=== PATIENT | female | born 1990 | race Caucasian/White ===

== ENCOUNTER 2017-02-25 22:22 | Emergency (ER) | payer SELFPAY ==
[2017-02-25 22:34] VITALS: BP 148/98
== END 2017-02-25 23:50 | disposition left against medical advice (07) ==
LOC: ER 22:22
DX: Z53.21 Procedure and treatment not carried out due to patient leaving prior to being seen by health care provider (principal)

== ENCOUNTER 2017-06-08 05:17 | Emergency (ER) | payer MEDICAID ==
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
[2017-06-08] MEDS ORDERED: LIDOCAINE 5% (700 MG) TRANSDERMAL ADH..PATCH TP ONE (07:59)
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
[2017-06-08] MEDS ORDERED: HYDROCODONE/ACETAMINOPHEN 5-325 MG TABLET PO ONE (11:12)
[2017-06-08 11:24] VITALS: BP 127/68
== END 2017-06-08 11:39 | disposition home or self-care (01) ==
LOC: ER 05:17
DX: S40.029A Contusion of unspecified upper arm, initial encounter (principal); R58 Hemorrhage, not elsewhere classified; M54.2 Cervicalgia; M25.519 Pain in unspecified shoulder; M25.529 Pain in unspecified elbow; Y04.2XXA Assault by strike against or bumped into by another person, initial encounter; F17.200 Nicotine dependence, unspecified, uncomplicated; Z88.0 Allergy status to penicillin
CPT/HCPCS: 99284; 72050; 73080; 73130; 73030; J3490

== ENCOUNTER 2018-04-19 14:17 | Emergency (ER) | payer MEDICAID ==
[2018-04-19 14:49] LABS: HEMATOCRIT 44.7 % (36.0-47.0); HEMOGLOBIN 14.4 g/dL (12.0-15.5); MEAN CORPUSCULAR HGB CONC 32.2 g/dL (32.0-36.0); MEAN CORPUSCULAR VOLUME 90 fl (80-97); PLATELET COUNT 315 10^3/uL (150-450); RED BLOOD COUNT 4.97 10^6/uL (3.72-5.28); RED CELL DISTRIBUTION WIDTH 16.2 % (11.5-14.0); WHITE BLOOD COUNT 25.2 10^3/uL (4.0-10.5)
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
[2018-04-19 15:08] LABS: ALANINE AMINOTRANSFERASE 15 U/L (9-52); ALBUMIN 4.9 g/dL (3.5-5.0); ALKALINE PHOSPHATASE 95 U/L (38-126); ASPARTATE AMINO TRANSFERASE 28 U/L (14-36); BILIRUBIN,DIRECT 0.3 mg/dL (0.0-0.4); BILIRUBIN,TOTAL 0.3 mg/dL (0.2-1.3); BLOOD UREA NITROGEN 9 mg/dL (7-20); CALCIUM 9.3 mg/dL (8.4-10.2); CARBON DIOXIDE 22 mmol/L (22-30); CHLORIDE 108 mmol/L (98-107); GLUCOSE 149 mg/dL (75-110); POTASSIUM 5.5 mmol/L (3.6-5.0); TOTAL PROTEIN 7.7 g/dL (6.3-8.2)
[2018-04-19 15:10] LABS: ABSOLUTE LYMPHOCYTES# (MANUAL) 1.3 10^3/uL (0.5-4.7); ABSOLUTE MONOCYTES # (MANUAL) 0.8 10^3/uL (0.1-1.4); ABSOLUTE NEUTROPHILS# (MANUAL) 23.2 10^3/uL (1.7-8.2); ACETAMINOPHEN < 10 ug/mL (10-30); ALCOHOL < 10 mg/dL (NONE DETECTED); BASOPHILS % (MANUAL) 0 % (0-2); EOSINOPHILS % (MANUAL) 0 % (0-6); LYMPHOCYTES % (MANUAL) 5 % (13-45); MONOCYTES % (MANUAL) 3 % (3-13); SALICYLATE < 1.0 mg/dL (2.0-20.0); SEGMENTED NEUTROPHILS % (MAN) 92 % (42-78); TOTAL CELLS COUNTED 100
[2018-04-19 15:11] LABS: ANISOCYTOSIS 1+; PLATELET CLUMPS PRESENT; PLATELET COMMENT ADEQUATE; TOXIC GRANULATION 1+
[2018-04-19 15:13] LABS: ANION GAP 19 (5-19); SODIUM 149.3 mmol/L (137-145)
[2018-04-19 15:28] LABS: CREATINE KINASE MB 0.9 ng/mL (<4.55)
[2018-04-19 15:36] LABS: TROPONIN I 0.061 ng/mL
[2018-04-19] MEDS ORDERED: NORMAL SALINE 1000 ML 1,000 ML IV ONE (15:43)
--- NOTE | 2018-04-19 15:45 | EKG REPORT ---
SEVERITY:- OTHERWISE NORMAL ECG - SINUS TACHYCARDIA : Confirmed by: Royce Dowling MD 19-Apr-2018 15:45:15
--- NOTE | 2018-04-19 15:47 | RADIOLOGY REPORT (SQ) ---
EXAM DESCRIPTION: CHEST SINGLE VIEW COMPLETED DATE/TIME: 04/19/2018 3:29 pm REASON FOR STUDY: overdose COMPARISON: None. EXAM PARAMETERS: NUMBER OF VIEWS: One view. TECHNIQUE: Single frontal radiographic view of the chest acquired. RADIATION DOSE: NA LIMITATIONS: None. FINDINGS: LUNGS AND PLEURA: No opacities, masses or pneumothorax. No pleural effusion. MEDIASTINUM AND HILAR STRUCTURES: No masses. Contour normal. HEART AND VASCULAR STRUCTURES: Heart normal in size. Normal vasculature. BONES: No acute findings. HARDWARE: None in the chest. OTHER: No other significant finding. IMPRESSION: NO ACUTE RADIOGRAPHIC FINDING IN THE CHEST. TECHNICAL DOCUMENTATION: JOB ID: [id number] [employer]- All Rights Reserved Reading location - IP/workstation name: [email or web address]
[2018-04-19 16:04] LABS: FREE T3 4.72 pg/mL (2.77-5.27); FREE T4 (FREE THYROXINE) 0.99 ng/dL (0.78-2.19)
--- NOTE | 2018-04-19 16:15 | RADIOLOGY REPORT (SQ) ---
EXAM DESCRIPTION: CT HEAD WITHOUT COMPLETED DATE/TIME: 04/19/2018 4:06 pm REASON FOR STUDY: unresponsive COMPARISON: None. TECHNIQUE: Axial images acquired through the brain without intravenous contrast. Images reviewed wi th bone, brain and subdural windows. Images stored on PACS. All CT scanners at this facility use dose modulation, iterative reconstruction, and/or weight based d osing when appropriate to reduce radiation dose to as low as reasonably achievable (ALARA). [facility]: Dose Right [facility]: CareDose [facility]: Dose Right [facility]: Teradose 4D [facility]: Smart GenePeeks RADIATION DOSE: CT Rad equipment meets quality standard of care and radiation dose reduction techniq ues were employed. CTDIvol: 53.2 mGy. DLP: 1017 mGy-cm. mGy. LIMITATIONS: None. FINDINGS: VENTRICLES: Normal size and contour. CEREBRUM: No masses. No hemorrhage. No midline shift. No evidence for acute infarction. Normal gra y/white matter differentiation. No areas of low density in the white matter. CEREBELLUM: No masses. No hemorrhage. No alteration of density. No evidence for acute infarction. EXTRAAXIAL SPACES: No fluid collections. No masses. ORBITS AND GLOBE: No intra- or extraconal masses. Normal contour of globe without masses. CALVARIUM: No fracture. PARANASAL SINUSES: Incidental note is made of complete opacification of the left sphenoid compartment and circumferential mucosal thickening with foamy secretions within the bilateral maxillary compartm ents. Few, scattered ethmoid air cell opacities. SOFT TISSUES: No mass or hematoma. OTHER: No other significant finding. IMPRESSION: 1. Normal noncontrast head CT. 2. Paranasal sinus disease. EVIDENCE OF ACUTE STROKE: NO. COMMENT: Quality ID # [id number]: Final reports with documentation of one or more dose reduction techniques (e.g., Automated exposure control, adjustment of the mA and/or kV according to patient size, use of iterative reconstruction technique) TECHNICAL DOCUMENTATION: JOB ID: [id number] [employer]- All Rights Reserved Reading location - IP/workstation name: [email or web address]
[2018-04-19 16:18] LABS: THYROID STIMULATING HORMONE 1.18 uIU/mL (0.47-4.68)
[2018-04-19 17:00] LABS: APPEARANCE,URINE CLEAR; BILIRUBIN,URINE NEGATIVE (NEGATIVE); COLOR,URINE YELLOW; GLUCOSE, URINE >=500 mg/dL (NEGATIVE); KETONES,URINE NEGATIVE (NEGATIVE); LEUKOCYTE ESTERASE,URINE NEGATIVE (NEGATIVE); NITRITE,URINE NEGATIVE (NEGATIVE); PROTEIN,URINE NEGATIVE (NEGATIVE); URINE SPECIFIC GRAVITY 1.014; UROBILINOGEN,URINE NEGATIVE mg/dL (<2.0)
[2018-04-19 17:08] LABS: URINE AMPHETAMINES SCREEN NEGATIVE; URINE BARBITURATES SCREEN NEGATIVE; URINE BENZODIAZEPINES SCREEN NEGATIVE; URINE COCAINE SCREEN UNCONFIRMED POSITIVE; URINE MARIJUANA (THC) SCREEN NEGATIVE; URINE METHADONE SCREEN NEGATIVE; URINE PHENCYCLIDINE SCREEN NEGATIVE
[2018-04-19 21:32] VITALS: BP 111/81
== END 2018-04-19 21:34 | disposition home or self-care (01) ==
LOC: ER 14:17
DX: R41.82 Altered mental status, unspecified (principal); R00.0 Tachycardia, unspecified; R07.89 Other chest pain; Z88.0 Allergy status to penicillin
CPT/HCPCS: 93005; 99285; 96360; 36415; 84439; 82553; 80307 ×4; 82550; 83735; 84443; 84703; 85025; 80053; 81001; 84484; 84481; 71045; 70450; 93010; J7030

== ENCOUNTER 2019-07-21 19:51 | Outpatient (CLI) | payer MEDICAID ==
[2019-07-21 20:41] LABS: BACTERIA (WET MOUNT) 3+ BACTERIA SEEN; EPITHELIALS (WET MOUNT) 3+ EPITHELIALS SEEN; RBCS (WET MOUNT) RARE RBCS SEEN; T.VAGINALIS (WET MOUNT) NO TRICHOMONAS SEEN; WBCS (WET MOUNT) 4+ WBCS SEEN; YEAST (WET MOUNT) NO YEAST SEEN
[2019-07-21 21:08] LABS: ABSOLUTE EOSINOPHILS # (AUTO) 0.1 10^3/uL (0.0-0.6); ABSOLUTE LYMPHOCYTES (AUTO) 2.1 10^3/uL (0.5-4.7); ABSOLUTE MONOCYTES (AUTO) 0.8 10^3/uL (0.1-1.4); ABSOLUTE NEUT (AUTO) 6.6 10^3/uL (1.7-8.2); BASOPHILS % (AUTO) 0.4 % (0-2); EOSINOPHILS % (AUTO) 1.1 % (0-6); HEMATOCRIT 32.4 % (36.0-47.0); HEMOGLOBIN 11.1 g/dL (12.0-15.5); LYMPHOCYTES % (AUTO) 21.7 % (13-45); MEAN CORPUSCULAR HEMOGLOBIN 29.7 pg (27.0-33.4); MEAN CORPUSCULAR HGB CONC 34.3 g/dL (32.0-36.0); MEAN CORPUSCULAR VOLUME 87 fl (80-97); MONOCYTES % (AUTO) 7.8 % (3-13); PLATELET COUNT 257 10^3/uL (150-450); RED BLOOD COUNT 3.74 10^6/uL (3.72-5.28); RED CELL DISTRIBUTION WIDTH 13.1 % (11.5-14.0); TOTAL CELLS COUNTED % (AUTO) 100 %; WHITE BLOOD COUNT 9.6 10^3/uL (4.0-10.5)
[2019-07-21 21:27] LABS: PARTIAL THROMBOPLASTIN TIME 29.1 SEC (23.5-35.8)
[2019-07-21 21:28] LABS: APPEARANCE,URINE SLIGHTLY-CLOUDY; BILIRUBIN,URINE SMALL (NEGATIVE); COLOR,URINE AMBER; GLUCOSE, URINE NEGATIVE (NEGATIVE); KETONES,URINE 80 mg/dL (NEGATIVE); LEUKOCYTE ESTERASE,URINE NEGATIVE (NEGATIVE); NITRITE,URINE NEGATIVE (NEGATIVE); PROTEIN,URINE 30 mg/dL (NEGATIVE); URINE SPECIFIC GRAVITY 1.028
[2019-07-21 21:48] LABS: URINE AMPHETAMINES SCREEN NEGATIVE; URINE BARBITURATES SCREEN NEGATIVE; URINE BENZODIAZEPINES SCREEN NEGATIVE; URINE COCAINE SCREEN NEGATIVE; URINE MARIJUANA (THC) SCREEN NEGATIVE; URINE METHADONE SCREEN NEGATIVE; URINE PHENCYCLIDINE SCREEN NEGATIVE
--- NOTE | 2019-07-21 21:50 | RADIOLOGY REPORT (SQ) ---
EXAM DESCRIPTION: US LIMITED COMPLETED DATE/TME: 07/21/2019 00:00 CLINICAL HISTORY: 28 years, Female, rule out abruption Findings: Single viable IUP of 34 weeks and zero days. Estimated weight 21 89 g. BLADIMIR is within normal limits at 12.6 cm. heart rate 135 bpm. Placenta lies in the fundus. No evidence for abruption. IMPRESSION: Single viable IUP of 34 weeks and zero days with no evidence for abruption.
[2019-07-21 22:18] LABS: CHLAM PCR NOT DETECTED (NOT DETECT)
--- NOTE | 2019-07-21 23:00 | Non Stress Test Report ---
Non Stress Test Datetime Report Generated by CPN: 07/21/2019 23:00 DEMOGRAPHIC EGA NST: 33.0 INDICATION Indication for Study: Ordered by Provider MONITORING Monitor Explained: Monitor Explained; Test Explained; Patient Verbalized Understanding Time on Monitor: 07/21/2019 20:12 Time off Monitor: 07/21/2019 22:35 NST Duration: 143 NST INTERVENTIONS NST Interventions: PO Hydration Physician Notified NST: dr. YOunger BABY A: [id number] BABY A Movement : Present Contraction Frequency : no ctx FHR Baseline : 135 Accelerations : 15X15 Decelerations : None Variability : Moderate 6-25bpm NST Review: Meets Criteria for Reactive NST NST Review and Verified By : Ruddy Hillman RN NST Results: Reactive NST REPORT Report Trigger: Send Report
== END 2019-07-21 23:43 | disposition home or self-care (01) ==
LOC: LC 19:51
PROVIDERS: ATTEND Obstetrics & Gynecology
PROC: 4A1HXCZ Monitoring of Products of Conception, Cardiac Rate, External Approach (ICD-10-PCS; principal; 2019-07-21)
DX: O47.03 False labor before 37 completed weeks of gestation, third trimester (principal); Z3A.33 33 weeks gestation of pregnancy
CPT/HCPCS: 36415; 59025; 76815; 80307; 81001; 84112; 85025; 85384; 85730; 86850; 86900; 86901; 87210; 87491; 87591

== ENCOUNTER 2019-09-10 07:43 | Inpatient (IN) | payer MEDICAID ==
[2019-09-10 08:42] LABS: APPEARANCE,URINE SLIGHTLY-CLOUDY; BILIRUBIN,URINE NEGATIVE (NEGATIVE); COLOR,URINE AMBER; GLUCOSE, URINE NEGATIVE (NEGATIVE); KETONES,URINE NEGATIVE (NEGATIVE); LEUKOCYTE ESTERASE,URINE SMALL (NEGATIVE); NITRITE,URINE NEGATIVE (NEGATIVE); PROTEIN,URINE 30 mg/dL (NEGATIVE); URINE SPECIFIC GRAVITY 1.024
[2019-09-10] MEDS ORDERED: CEFAZOLIN 2 GM/D5W RTU 2 GM/50 ML RTUPB IV ONE (08:47)
[2019-09-10] MEDS ORDERED: OXYTOCIN/NORMAL SALINE 20 UNIT/1,000 ML RTUINJ IV PRN (08:51)
[2019-09-10 09:06] LABS: URINE AMPHETAMINES SCREEN NEGATIVE; URINE BARBITURATES SCREEN NEGATIVE; URINE BENZODIAZEPINES SCREEN NEGATIVE; URINE COCAINE SCREEN NEGATIVE; URINE MARIJUANA (THC) SCREEN NEGATIVE; URINE METHADONE SCREEN NEGATIVE; URINE PHENCYCLIDINE SCREEN NEGATIVE
--- NOTE | 2019-09-10 09:06 | Admission Physical ---
Datetime Report Generated by CPN: 09/10/2019 09:05 CURRENT ADMISSION Chief Complaint: Scheduled Induction of Labor Indication for Induction: Post Dates Admit Impression : Term, Intrauterine Admit Plan: Admit to Unit; Initiate Labor Protocol ALLERGIES Medication Allergies: Yes Medication Allergies: Penicillins/rash (10/15/2013); ampicillin/rash (10/15/2013) Latex: No Latex Allergies Food Allergies: n/a Environmental Allergies: n/a OBSTETRICAL HISTORY EDC: 09/08/2019 00:00 : 8 Para: 6 Term: 5 : 0 SAB: 1 IAB: 1 Ectopic: 0 Livin Cesareans: 0 VBACs: 0 Multiple Births: 0 Gestational Diabetes: No Rh Sensitization: No Incompetent Cervix: No JULIA: No Infertility: No ART Treatment: No Uterine Anomaly: No IUGR: No Hx Previous C/S: No Macrosomia: No Hx Loss/Stillborn: No PIH: No Hx : No Placenta Previa/Abruption: No Depression/PP Depression: Yes PTL/PROM: No Post Hemorrhage: No Current Procedures: Ultrasound Obstetrical History Comments: G1- G2-- from SIDS @ 8mo G3- induced Oligo G4- G5-EAB G6- G7-SAB with D_C SEE RECORDS Alcohol: No Marijuana : Yes Cocaine: No Other Illicit Drugs: No Cigarettes: Current Everyday Smoker. [id number] Cigarette Frequency: > 10 per day MEDICAL HISTORY Diabetes: No Blood Transfusion: No Pulmonary Disease (Asthma, TB): No Breast Disease: No Hypertension: No Housecalls Nurse Surgery: Yes Heart Disease: No Hosp/Surgery: Yes Autoimmune Disorder: No Anesthetic Complications: No Kidney Disease: Yes Abnormal Pap Smear: Yes Neuro/Epilepsy: No Psychiatric Disorders: No Other Medical Diseases: No Hepatitis/Liver Disease: No Significant Family History: No Varicosities/Phlebitis: No Trauma/Violence : No Thyroid Dysfunction: No Medical History Comments: pt states that she has had a lot of UTI's this preg, childbirthx5, dental surgery, D_C, HGSIL-COLPO, chronic migranes INFECTIOUS HISTORY Gonorrhea: No Genital Herpes: No Chlamydia: Yes Tuberculosis: No Syphilis: No Hepatitis: No HIV/AIDS Exposure: No Rash or Viral Illness: No HPV: No Infectious History Comments: chlamydia 2019 PHYSICAL EXAM General: Normal HEENT: Normal Neurologic: Normal Thyroid: Deferred Heart: Normal Lungs: Normal Breast: Deferred Back: Normal Abdomen: Normal Genitourinary Exam: Normal Extremities: Normal DTRs: Deferred Pelvic Type: Adequate Physical Exam Comments: proven pelvis to 8#10 Vital Signs: Reviewed VAGINAL EXAM Dilatation: 2 Effacement: th Station: -3 Contraction Comments: rare MEMBRANES Membranes: Intact FETUS A EGA: 40.2 Monitoring: External US FHR- Baseline: 125 Variability: Moderate 6-25bpm Accelerations: 15X15 Decelerations: None FHR Category: Category I Estimated Weight (gm): 3600 Presentation: Vertex Admit Comment: with hx of one baby from SIDS at 8 mo of age. + chlamydia in with neg GIULIA, +GBS and penicillin allergic-has taken keflex without problems. P:ancef for GBS prophylaxis, IOL-pitocin, pt plans epidural. PLANS FOR LABOR AND DELIVERY Labor and Delivery: None Pain Management: Epidural Feeding Preference: Formula INFORMED CONSENT Assignment: Humaira Tripathi MD Signature: with User ID: [email or web address] : with User ID: [email or web address]
[2019-09-10] MEDS ORDERED: RINGERS SOLUTION,LACTATED 1,000 ML IV ONE (09:12)
[2019-09-10] MEDS ORDERED: OXYTOCIN/NORMAL SALINE 20 UNIT/1,000 ML RTUINJ ONE ×2 (09:14→19:52)
[2019-09-10 09:18] LABS: ABSOLUTE EOSINOPHILS # (AUTO) 0.1 10^3/uL (0.0-0.6); ABSOLUTE LYMPHOCYTES (AUTO) 1.9 10^3/uL (0.5-4.7); ABSOLUTE MONOCYTES (AUTO) 0.7 10^3/uL (0.1-1.4); ABSOLUTE NEUT (AUTO) 5.8 10^3/uL (1.7-8.2); BASOPHILS % (AUTO) 0.4 % (0-2); EOSINOPHILS % (AUTO) 0.9 % (0-6); HEMATOCRIT 34.4 % (36.0-47.0); HEMOGLOBIN 11.6 g/dL (12.0-15.5); LYMPHOCYTES % (AUTO) 22.2 % (13-45); MEAN CORPUSCULAR HEMOGLOBIN 27.6 pg (27.0-33.4); MEAN CORPUSCULAR HGB CONC 33.8 g/dL (32.0-36.0); MEAN CORPUSCULAR VOLUME 82 fl (80-97); MONOCYTES % (AUTO) 8.5 % (3-13); PLATELET COUNT 282 10^3/uL (150-450); RED CELL DISTRIBUTION WIDTH 14.8 % (11.5-14.0); TOTAL CELLS COUNTED % (AUTO) 100 %; WHITE BLOOD COUNT 8.6 10^3/uL (4.0-10.5)
[2019-09-10] MEDS ORDERED: CEFAZOLIN INJ 1 GM VIAL ONE (10:13)
[2019-09-10] MEDS: CEFAZOLIN SODIUM 1 GM in DEXTROSE 5%-WATER 50 ML IV SCH ×2 (10:22→18:21)
[2019-09-10] MEDS ORDERED: PROMETHAZINE HCL INJ 25 MG/1 ML VIAL ONE (12:27)
[2019-09-10] MEDS ORDERED: NALBUPHINE HCL INJ 10 MG/1 ML AMPULE ONE (12:27)
[2019-09-10] MEDS ORDERED: NALBUPHINE HCL INJ 10 MG/1 ML AMPULE INJ ONE (13:00)
[2019-09-10] MEDS ORDERED: PROMETHAZINE HCL INJ 25 MG/1 ML VIAL IV ONE (13:00)
[2019-09-10] MEDS ORDERED: FENTANYL/BUPIVACAINE/NS/PF 0 MCG/0 ML RTUINJ EPI ONE (15:25)
[2019-09-10] MEDS ORDERED: EPHEDRINE SULFATE INJ 50 MG/1 ML AMPULE ONE ×2 (15:25→22:10)
[2019-09-10] MEDS ORDERED: BUPIVACAINE HCL 0.25 % INJ/PF (2.5 MG/1 ML) 30 ML VIAL ONE ×2 (15:25→22:10)
[2019-09-10] MEDS ORDERED: FENTANYL CITRATE INJ/PF 100 MCG/2 ML AMPUL ONE ×2 (15:25→22:10)
[2019-09-10] MEDS: RINGERS SOLUTION,LACTATED 1,000 ML IV PRN ×2 (15:54→19:40)
[2019-09-10] MEDS ORDERED: CEFAZOLIN 1 GM/D5W RTU 1 GM/50 ML RTUPB IV SCH (16:51)
[2019-09-10] MEDS ORDERED: BUPIVACAINE HCL 0.5 % INJ/PF 30 ML SDV ONE (19:44)
[2019-09-10] MEDS ORDERED: OXYTOCIN 10 UNIT/ML VIAL ONE (19:51)
[2019-09-10] MEDS ORDERED: MISOPROSTOL 0.2 MG TABLET ONE (19:51)
[2019-09-10] MEDS ORDERED: LIDOCAINE 1% INJ-PF (10 MG/ML) 30 ML SDV ONE (19:52)
[2019-09-10] MEDS ORDERED: FENTANYL/BUPIVACAINE/NS/PF 300 MCG/150 ML RTUINJ EPI ONE (22:10)
[2019-09-11] MEDS ORDERED: FENTANYL CITRATE INJ/PF 100 MCG/2 ML AMPUL IV ONE (00:25)
[2019-09-11] MEDS ORDERED: FENTANYL CITRATE INJ/PF 100 MCG/2 ML AMPUL ONE (00:34)
[2019-09-11] MEDS ORDERED: NALOXONE HCL INJ/PF 0.4 MG/1 ML SDV ONE (00:34)
[2019-09-11] MEDS ORDERED: IBUPROFEN 800 MG TABLET ONE (01:28)
[2019-09-11] MEDS ORDERED: OXYTOCIN/NORMAL SALINE 20 UNIT/1,000 ML RTUINJ IV PRN (01:47)
[2019-09-11] MEDS ORDERED: ACETAMINOPHEN 650 MG SUPP.RECT PR PRN (01:47)
[2019-09-11] MEDS ORDERED: NA PHOS,M-B/NA PHOS,DI-BA (ADULT) 133 ML ENEMA PR PRN (01:47)
[2019-09-11] MEDS ORDERED: ACETAMINOPHEN WITH CODEINE #3 TABLET PO PRN (01:47)
[2019-09-11] MEDS ORDERED: DIBUCAINE 1% OINTMENT 56 GM TP PRN (01:47)
[2019-09-11] MEDS ORDERED: PROMETHAZINE HCL 25 MG TABLET PO PRN (01:47)
[2019-09-11] MEDS ORDERED: BENZOCAINE/MENTHOL AEROSOL SPRAY 56 ML TOP PRN (01:47)
[2019-09-11] MEDS ORDERED: PSEUDOEPHEDRINE HCL 30 MG TABLET PO PRN (01:47)
[2019-09-11] MEDS ORDERED: PROMETHAZINE HCL INJ 25 MG/1 ML VIAL IV PRN (01:47)
[2019-09-11] MEDS ORDERED: MAGNESIUM HYDROXIDE SUSP 30 ML UDCUP PO PRN (01:47)
[2019-09-11] MEDS ORDERED: DIPH/PERTUSS(ACELL)/TETANUS VAC/PF 0.5 ML SYR (>=10YO) IM PRN (01:47)
[2019-09-11] MEDS ORDERED: PROMETHAZINE HCL 25 MG SUPP.RECT PR PRN (01:47)
[2019-09-11] MEDS ORDERED: GLYCERIN/WITCH HAZEL LEAF 1 EACH MED..WIPE TP PRN (01:47)
[2019-09-11] MEDS ORDERED: MEASLES,MUMPS&RUBELLA VACC/PF 0.5 ML VIAL SUBCUT PRN (01:47)
[2019-09-11] MEDS ORDERED: ZOLPIDEM TARTRATE 5 MG TABLET PO PRN (01:47)
[2019-09-11] MEDS ORDERED: DIPHENHYDRAMINE HCL 25 MG CAPSULE PO PRN (01:47)
--- NOTE | 2019-09-11 01:59 | Warning Signs in Babies ---
VOD Warning Signs Datetime Report Generated by [facility]: 09/11/2019 01:59 VOD#608 -Warning Signs in Babies: Needs to be viewed. (07/21/2019 19:58:Leah Grover RN)
[2019-09-11] MEDS: CEFAZOLIN SODIUM 1 GM in DEXTROSE 5%-WATER 50 ML IV SCH (02:01)
[2019-09-11] MEDS ORDERED: IBUPROFEN 800 MG TABLET PO ONE (02:15)
--- NOTE | 2019-09-11 02:15 | Delivery Summary ---
Del Sum A-C Datetime Report Generated by CPN: 09/11/2019 02:15 DELIVERY PERSONNEL DELIVERY PERSONNEL: [id number] Delivery Doctor:: Humaira Tripathi MD Labor and Delivery Nurse:: Leah Grover RNsupervisor electric Nurse:: Jessica Johnson RN Nursery Nurse:: Juhi Choudhury RN MATERNAL INFORMATION Delivery Anesthesia: Epidural Medications After Delivery: Pitocin Bolus-Please Comment; Pitocin Drip 20 Units/1000ml NSS; Cytotec 1000mcg Per Rectum/Vagina Delivery QBL: 100 Maternal Complications: None Provider Comments: Called to patients bedside and the head was on the perineum. Nuchal cord x1 was noted and easily reduced. The shoulders and the rest of the body easily delivered . Cord clamping delayed for 30 seconds as the was vigorous. MOther and stable. LABOR SUMMARY EDC: 09/08/2019 00:00 No. Babies in Womb: 1 Attempted: No Labor Anesthesia: Epidural LABOR INFORMATION Reason for Induction: Other Reason for Induction- Other: elective Onset of Labor: 09/10/2019 16:51 Oxytocin: Induction Group B Beta Strep: positive Antibiotics # of Doses: 2 Antibiotics Time of Last Dose: 1820 Name of Antibiotic Given: Ancef Steroids Given: None Reason Steroids Not Administered: Not Applicable MEMBRANES Membranes Rupture Method: Artificial Rupture of Membranes: 09/10/2019 16:51 Length of Rupture (hr): 8.30 Amniotic Fluid Color: Clear Amniotic Fluid Amount: Moderate STAGES OF LABOR Stage 3 hr: 0 Stage 3 min: 4 Total Time in Labor hr: 8 Total Time in Labor min: 22 VAGINAL DELIVERY Episiotomy: None Laceration #1: None Laceration Repair: Not Applicable Sponge Count Correct: Yes Sharps Count Correct: N/A CSECTION DELIVERY Primary Indication: N/A Secondary Indication: N/A CSection Incidence: N/A Labor: N/A Elective: N/A BABY A INFORMATION Delivery Date/Time: 09/11/2019 01:09 Method of Delivery: Vaginal Born in Route : No : N/A Forceps: N/A Vacuum Extraction: N/A Shoulder Dystocia : No PRESENTATION/POSITION BABY A Presentation: Cephalic Cephalic Presentation: Vertex Vertex Position: Right Occipital Anterior Breech Presentation: N/A PLACENTA INFORMATION BABY A Placenta Delivery Time : 09/11/2019 01:13 Placenta Method of Delivery: Spontaneous Placenta Status: Delivered SCORES BABY A Heart Rate 1 min: >100 bpm Resp Effort 1 min: Good Cry Reflex Irritability 1 min: Cough or Sneeze or Pulls Away Muscle Tone 1 min: Active Motion Color 1 min: Blue/Pale Resuscitation Effort 1 min: Tactile Stimulation SCORE 1 MIN: 8 Heart Rate 5 min: >100 bpm Resp Effort 5 min: Good Cry Reflex Irritability 5 min: Cough or Sneeze or Pulls Away Muscle Tone 5 min: Active Motion Color 5 min: Body [place], Extremities Blue Resuscitation Effort 5 min: Tactile Stimulation SCORE 5 MIN: 9 INFORMATION BABY A Gestational Age at Delivery: 40.3 Gestational Status: Full Term- 39- 40.6 Weeks Infant Outcome : Liveborn Condition : Stable Sex: Male IDENTIFICATION BABY A Infant Verification Date/Time: 09/11/2019 01:32 ID Band Number: [id number] Mother's Name Verified: Yes Infant RN Verifying : Tang Johnson CHACHO Additional Verifying Personnel: Nancy Grover RN WEIGHT/LENGTH BABY A Infant Birthweight (gm): 3100 Infant Weight (lb): 6 Infant Weight (oz): 13 Length (in): 20.75 Length (cm): 52.71 CORD INFORMATION BABY A No. Cord Vessels: 3 Nuchal Cord : Around Neck x1, Loose Nuchal Cord- Other: compoud hand Cord Blood Taken: Yes-For Eval (Mom's Blood Type - or O+) Suction: Mouth ASSESSMENT BABY A Infant Complications: Multiple Variable Decels Physical Findings at Delivery: Bruising Physical Findings- Other: see initial assessment Infant Respirations: Appears Normal Skin to Skin: No [employer]/ALS Called : No Infant Care By: Scotty Choudhury RN Transferred To: Remains with Mother BABY B INFORMATION : N/A SIGNATURES Signature: with User ID: [email or web address] : with User ID: Linda : I was personally available for consultation and serving as supervising physician for the MLP.
[2019-09-11] MEDS: ACETAMINOPHEN WITH CODEINE #3 TABLET PO PRN ×3 (08:51→22:41)
[2019-09-11] MEDS: PRENATAL VITAMIN W DHA CAPSULE PO SCH (09:59)
[2019-09-11] MEDS: IBUPROFEN 800 MG TABLET PO SCH ×2 (10:00→17:33)
[2019-09-11] MEDS: DOCUSATE SODIUM 100 MG CAPSULE PO SCH ×2 (10:00→17:33)
[2019-09-11] MEDS: FERROUS SULFATE 325 MG TABLET PO SCH ×2 (10:00→17:33)
[2019-09-11] MEDS: FAMOTIDINE 20 MG TABLET PO SCH ×2 (10:01→22:39)
[2019-09-11] MEDS: SENNOSIDES/DOCUSATE 8.6-50 MG 1 EACH TABLET PO SCH (10:01)
--- NOTE | 2019-09-11 10:30 | PDOC PROGRESS REPORT ---
Subjective-OB Progress Note for:: 09/11/19 - delivery day, doing well, has been up out of bed, no complaints, bottlefeeding Physical Exam (OB) Vital Signs: Temp Pulse Resp BP Pulse Ox 98.1 F 73 16 111/56 L 98 09/11/19 09:02 09/11/19 09:02 09/11/19 09:02 09/11/19 09:02 09/11/19 09:02 Intake & Output 09/10/19 09/11/19 09/12/19 06:59 06:59 06:59 Intake Total 521 Balance 521 Weight 98.8 kg - General General Appearance: Appears well, Alert In distress: None - PIH/Pre-Eclampsia Clonus: Negative Headache: Absent Epigastric Pain: No Visual Changes: No - Lochia Lochia Amount: Small 10-25 ml Lochia Color: Rubra/Red - Abdomen Description: Soft Hernia Present: No Fundal Description: Firm, Midline Fundal Height: u/u - u/2 - Respiratory Respiratory Status: No respiratory distress - Abdominal Tenderness: Nontender - Genitourinary Genitourinary Note: voiding - Extremities Upper extremity: Normal inspection Lower extremities: Normal inspection - Neurological Cognition: Normal Orientation: AAOx4 - Psychological Associated symptoms: Normal affect, Normal mood - Skin Skin Temperature: Warm Skin Moisture: Dry Objective-Diagnostic Laboratory: 09/10/19 08:45 Assessment and Plan(PN) - Assessment and Plan (1) (normal spontaneous vaginal delivery) Is this a current diagnosis for this admission?: Yes (2) Encounter for induction of labor Is this a current diagnosis for this admission?: Yes (3) Family history of SIDS (sudden infant syndrome) Is this a current diagnosis for this admission?: Yes (4) Group B Streptococcus carrier state affecting Is this a current diagnosis for this admission?: Yes Plan:: ambulation encouraged routine PP care - Time Spent with Patient Time with patient: Less than 15 minutes Medications reviewed and adjusted accordingly: Yes - Disposition Anticipated Discharge: Home Within: within 24 hours
[2019-09-12] MEDS: IBUPROFEN 800 MG TABLET PO SCH ×3 (02:25→17:41)
[2019-09-12 06:09] LABS: HEMATOCRIT 31.1 % (36.0-47.0); HEMOGLOBIN 10.4 g/dL (12.0-15.5); MEAN CORPUSCULAR HEMOGLOBIN 27.7 pg (27.0-33.4); MEAN CORPUSCULAR HGB CONC 33.5 g/dL (32.0-36.0); MEAN CORPUSCULAR VOLUME 83 fl (80-97); PLATELET COUNT 240 10^3/uL (150-450); RED BLOOD COUNT 3.76 10^6/uL (3.72-5.28); RED CELL DISTRIBUTION WIDTH 14.9 % (11.5-14.0); WHITE BLOOD COUNT 9.7 10^3/uL (4.0-10.5)
[2019-09-12] MEDS: PRENATAL VITAMIN W DHA CAPSULE PO SCH (09:50)
[2019-09-12] MEDS: FERROUS SULFATE 325 MG TABLET PO SCH ×2 (09:50→17:41)
[2019-09-12] MEDS: SENNOSIDES/DOCUSATE 8.6-50 MG 1 EACH TABLET PO SCH (09:50)
[2019-09-12] MEDS: DOCUSATE SODIUM 100 MG CAPSULE PO SCH ×2 (09:50→17:41)
[2019-09-12] MEDS: FAMOTIDINE 20 MG TABLET PO SCH (09:51)
--- NOTE | 2019-09-12 11:00 | PDOC DISCHARGE SUMMARY ---
Impression - Admit/DC Date/PCP Admission Date/Primary Care Provider: 09/10/19 07:43 Discharge Date: 09/12/19 - PP Day #1, pt doing well, bottle feeding, Plans PP outpatient BTL. O+, Rubella Non-Immune, will d/c home today- later this afternoon. GBS+, Hx THC use - Discharge Diagnosis (1) (normal spontaneous vaginal delivery) Is this a current diagnosis for this admission?: Yes (2) Encounter for induction of labor Is this a current diagnosis for this admission?: Yes (3) Family history of SIDS (sudden syndrome) Is this a current diagnosis for this admission?: Yes (4) Group B Streptococcus carrier state affecting Is this a current diagnosis for this admission?: Yes - Additional Information Resuscitation Status: Full Code Discharge Diet: As Tolerated, Regular Discharge Activity: Activity As Tolerated, No Lifting Over 10 Pounds, Pelvic Rest Prescriptions: Ibuprofen [Motrin 800 mg Tablet] 800 mg PO Q8A #60 tablet Home Medications: Ibuprofen [Motrin 800 mg Tablet] 800 mg PO Q8A #60 tablet 09/12/19 Vit/Dha [ Multi + Dha Capsule] 1 cap PO DAILY capsule 09/12/19 HPI Reason(s) for Admission: Induction of Labor Procedures: NST, Ultrasound Intrapartum Procedure(s): Spontaneous Vaginal Delivery Hospital Course Hospital Course: routine Results Laboratory Results: WBC 9.7 10^3/uL (4.0-10.5) 09/12/19 05:46 RBC 3.76 10^6/uL (3.72-5.28) 09/12/19 05:46 Hgb 10.4 g/dL (12.0-15.5) L 09/12/19 05:46 Hct 31.1 % (36.0-47.0) L 09/12/19 05:46 MCV 83 fl (80-97) 09/12/19 05:46 MCH 27.7 pg (27.0-33.4) 09/12/19 05:46 MCHC 33.5 g/dL (32.0-36.0) 09/12/19 05:46 RDW 14.9 % (11.5-14.0) H 09/12/19 05:46 Plt Count 240 10^3/uL (150-450) 09/12/19 05:46 Lymph % (Auto) 22.2 % (13-45) 09/10/19 08:45 [place] % (Auto) 8.5 % (3-13) 09/10/19 08:45 Eos % (Auto) 0.9 % (0-6) 09/10/19 08:45 Baso % (Auto) 0.4 % (0-2) 09/10/19 08:45 Absolute Neuts (auto) 5.8 10^3/uL (1.7-8.2) 09/10/19 08:45 Absolute Lymphs (auto) 1.9 10^3/uL (0.5-4.7) 09/10/19 08:45 Absolute Monos (auto) 0.7 10^3/uL (0.1-1.4) 09/10/19 08:45 Absolute Eos (auto) 0.1 10^3/uL (0.0-0.6) 09/10/19 08:45 Absolute Basos (auto) 0.0 10^3/uL (0.0-0.2) 09/10/19 08:45 Seg Neutrophils % 68.0 % (42-78) 09/10/19 08:45 Urine Color DONA 09/10/19 08:06 Urine Appearance SLIGHTLY-CLOUDY 09/10/19 08:06 Urine pH 6.0 (5.0-9.0) 09/10/19 08:06 Ur Specific [place] 1.024 09/10/19 08:06 Urine Protein 30 mg/dL (NEGATIVE) H 09/10/19 08:06 Urine Glucose (UA) NEGATIVE mg/dL (NEGATIVE) 09/10/19 08:06 Urine Ketones NEGATIVE mg/dL (NEGATIVE) 09/10/19 08:06 Urine Blood NEGATIVE (NEGATIVE) 09/10/19 08:06 Urine Nitrite NEGATIVE (NEGATIVE) 09/10/19 08:06 Urine Bilirubin NEGATIVE (NEGATIVE) 09/10/19 08:06 Urine Urobilinogen 2.0 mg/dL (<2.0) H 09/10/19 08:06 Ur Leukocyte Esterase SMALL (NEGATIVE) H 09/10/19 08:06 Urine Ascorbic Acid NEGATIVE (NEGATIVE) 09/10/19 08:06 Urine Opiates Screen NEGATIVE 09/10/19 08:06 Urine Methadone Screen NEGATIVE 09/10/19 08:06 Ur Barbiturates Screen NEGATIVE 09/10/19 08:06 Ur Phencyclidine Scrn NEGATIVE 09/10/19 08:06 Ur Amphetamines Screen NEGATIVE 09/10/19 08:06 U Benzodiazepines Scrn NEGATIVE 09/10/19 08:06 Urine Cocaine Screen NEGATIVE 09/10/19 08:06 U Marijuana (THC) Screen NEGATIVE 09/10/19 08:06 Blood Type O POSITIVE 09/10/19 08:45 Antibody Screen NEGATIVE 09/10/19 08:45 Plan Health Concerns: Plan PP BTL outpatient Plan of Treatment: d/c to home, f/u with [facility] in 2 wks for BTL consult and PP check up
[2019-09-12] MEDS: ACETAMINOPHEN WITH CODEINE #3 TABLET PO PRN (12:25)
[2019-09-12 13:43] VITALS: BP 111/56
== END 2019-09-12 19:25 | disposition home or self-care (01) | DRG 807 ==
LOC: LR 07:43 → 2S 09-11 03:44
PROVIDERS: ADMIT Obstetrics & Gynecology; ATTEND Obstetrics & Gynecology
PROC: 10E0XZZ Delivery of Products of Conception, External Approach (ICD-10-PCS; principal; 2019-09-11)
DX: O48.0 Post-term pregnancy (principal); Z37.0 Single live birth; O99.334 Smoking (tobacco) complicating childbirth; F17.210 Nicotine dependence, cigarettes, uncomplicated; O69.81X0 Labor and delivery complicated by cord around neck, without compression, not applicable or unspecified; O99.824 Streptococcus B carrier state complicating childbirth; O76 Abnormality in fetal heart rate and rhythm complicating labor and delivery; Z3A.40 40 weeks gestation of pregnancy
CPT/HCPCS: 36415; 59025; 80307; 81005; 85025; 85027; 86592; 86850; 86900; 86901; J0690; J2300; J2310; J2550; J2590; J3010; J3490; J7060